=== PATIENT | female | born 1955 | race Asian ===

== ENCOUNTER 2016-07-19 08:13 | Emergency (ER) | payer BC ==
[~2016-07-19] VITALS: Ht 152.4 cm; Wt 54.5 kg
[2016-07-19 08:18] VITALS: TEMP 97.4
[2016-07-19] MEDS ORDERED: PROTONIX 40MG T40 MG PO (08:25)
[2016-07-19 09:19] LABS: HEMATOCRIT 41.9 % (37.0-47.0); HEMOGLOBIN 13.7 g/dl (12.5-16.0); MEAN CELL VOLUME 86 fl (80.0-100.0); MEAN CORPUSCULAR HEMOGLOBIN 28 pg (27.0-31.0); MEAN CORPUSCULAR HGB CONC 33 g/dl (33.0-37.0); MEAN PLATELET VOLUME 9.2 fl (7.4-10.4); PLATELET COUNT 290 K/mm3 (130-400); RED BLOOD COUNT 4.88 M/mm3 (4.10-5.30); REDCELL DISTRIBUTION WIDTH-CV 12.3 % (11.5-14.5)
[2016-07-19 09:38] LABS: ADD PATHOLOGY DIFF REVIEW NO; TOTAL CELLS COUNTED 0
[2016-07-19 09:47] LABS: ADJUSTED CALCIUM 9.3 mg/dL (8.4-10.2); ALBUMIN 4.3 gm/dL (3.5-5.0); BILIRUBIN,TOTAL 0.7 mg/dL (0.0-1.0); CALCIUM 9.5 mg/dL (8.4-10.2); CREATININE, serum 0.6 mg/dL (0.52-1.25); POTASSIUM 4.1 mmol/L (3.4-5.0); TOTAL PROTEIN 8.2 gm/dL (6.4-8.2)
[2016-07-19] MEDS ORDERED: CIPRO 500MG TA500 MG PO (10:03)
[2016-07-19] MEDS ORDERED: ZOFRAN ODT4 MG PO (10:03)
[2016-07-19 10:51] VITALS: BP 119/63; PULSE 63
== END 2016-07-19 10:52 | disposition home or self-care (01) ==
LOC: COL.ER 08:13
PROVIDERS: Emergency Medicine
DX: R11.10 Vomiting, unspecified (principal)
CPT/HCPCS: C9113; J2405; J2550; J7030

== ENCOUNTER → 2017-08-17 | Outpatient (CLI) | payer BC ==
[~2017-08-17] MED LIST: CIPRO 500MG TA500 MG PO; PROTONIX 40MG T40 MG PO; ZOFRAN ODT4 MG PO
== END ==
LOC: MC.RAD 07-27 11:00
DX: Z12.31 Encounter for screening mammogram for malignant neoplasm of breast (principal)

== ENCOUNTER → 2018-07-09 | Outpatient (CLI) | payer BC ==
[~2018-07-09] MED LIST changes: +BACTRIM DS 8001 TAB; +EVISTA 60MG60 MG/TAB; +NEXIUM 40MG40 MG; +ZANTAC 150MG T150 MG
== END ==
LOC: COL.VAS 08:11
DX: Z01.818 Encounter for other preprocedural examination (principal); H47.10 Unspecified papilledema; H35.352 Cystoid macular degeneration, left eye; I08.1 Rheumatic disorders of both mitral and tricuspid valves

== ENCOUNTER → 2018-08-09 | Outpatient (CLI) | payer BC | LOC: COL.RAD 11:46 | DX: R10.9 Unspecified abdominal pain (principal); Z90.710 Acquired absence of both cervix and uterus | CPT/HCPCS: Q9967 ==

== ENCOUNTER → 2018-10-28 | Outpatient (CLI) | payer BC | LOC: COL.RAD 07:03 | DX: N28.1 Cyst of kidney, acquired (principal) ==

== ENCOUNTER → 2019-03-28 | Outpatient (CLI) | payer BC ==
[~2019-03-28] MED LIST changes: +OSCAL 500 TAB500 MG PO; +VALIUM 5MG T5 MG/TAB PO; +ZOFRAN 4MG T4 MG/TAB PO
== END ==
LOC: COL.RAD 06:55
DX: G31.9 Degenerative disease of nervous system, unspecified (principal); Q27.39 Arteriovenous malformation, other site
CPT/HCPCS: A9585

== ENCOUNTER 2019-04-08 07:47 | Outpatient (RCR) | payer BC | END 2019-04-20 13:21 | disposition home or self-care (01) | LOC: WSPT 07:47 | DX: R42 Dizziness and giddiness (principal) ==

== ENCOUNTER → 2019-06-20 | Outpatient (CLI) | payer BC ==
--- NOTE | 2019-06-15 14:31 | NUR ---
PT TO COME IN AT 1130 AND BE SCANNED FOR THYROID, BX IF INDICATED TO FOLLOW.
[~2019-06-20] VITALS: Ht 152.4 cm; Wt 49.1 kg
[~2019-06-20] MED LIST changes: +PAMELOR 10MG10 MG PO; +PROLIA60 MG/ML SQ
[2019-06-20 12:04] VITALS: BP 161/77; PULSE 84
[2019-06-20 12:45] VITALS: BP 146/92; PULSE 84
--- NOTE | 2019-06-20 12:45 | NUR ---
PT UNDERWENT THE THYROID BX. SITE IS [facility] WITH ADELE PRESENT. VSS. REFUSED DNACK. PT WAS TAKEN TO LOBBY AND HANDED OVER TO HER
== END ==
LOC: COL.RAD 11:17
DX: E04.1 Nontoxic single thyroid nodule (principal)

== ENCOUNTER 2019-07-12 13:02 | Emergency (ER) | payer BC ==
[~2019-07-12] VITALS: Ht 152.4 cm; Wt 48.6 kg
[2019-07-12 14:16] LABS: BASO # 0.1 (0.0-0.2); BASO % 0.4 % (0.0-2.0); EOS # 0.2 (0.0-0.7); EOS % 1.3 % (0-4.0); GRAN # 13.3 (1.4-6.5); GRAN % 81.1 % (42.2-75.2); HEMOGLOBIN 10.3 g/dl (12.5-16.0); LYMPH # 1.5 (1.2-3.4); LYMPH % 9.1 % (20.0-51.0); MEAN CELL VOLUME 78 fl (80.0-100.0); MEAN CORPUSCULAR HEMOGLOBIN 24 pg (27.0-31.0); MEAN CORPUSCULAR HGB CONC 31 g/dl (33.0-37.0); MEAN PLATELET VOLUME 7.8 fl (7.4-10.4); MONO # 1.3 (0.1-0.6); MONO % 7.6 % (1.7-9.3); PLATELET COUNT 492 K/mm3 (130-400); RED BLOOD COUNT 4.23 M/mm3 (4.10-5.30); REDCELL DISTRIBUTION WIDTH-CV 17.5 % (11.5-14.5)
[2019-07-12 14:22] LABS: HEMATOCRIT 33.1 % (37.0-47.0)
[2019-07-12 14:25] LABS: ALANINE AMINOTRANSFERASE 16 U/L (9-52); ALBUMIN 4.1 gm/dL (3.5-5.0); ALKALINE PHOSPHATASE 69 U/L (50-136); ANION GAP 10 mmol/L (7-16); AST,SGOT 20 U/L (15-37); BILIRUBIN,TOTAL 0.2 mg/dL (0.0-1.0); BLOOD UREA NITROGEN 13 mg/dL (7-17); CARBON DIOXIDE 26 mmol/L (22-30); CHLORIDE 96 mmol/L (98-107); CREATININE, serum 0.46 (0.52-1.25); GLUCOSE 117 mg/dL (74-106); POTASSIUM 4.1 mmol/L (3.4-5.0); SODIUM 131 mmol/L (137-145); TOTAL PROTEIN 7.9 gm/dL (6.4-8.2)
[2019-07-12 14:40] VITALS: BP 138/77
[2019-07-12 15:02] LABS: TROPONIN-I < 0.012 ng/mL (0.000-0.035)
[2019-07-12 15:22] VITALS: PULSE 82; TEMP 98.7
== END 2019-07-12 15:22 | disposition home or self-care (01) ==
LOC: COL.ER 13:02
PROVIDERS: Emergency Medicine
DX: S06.9X9A Unspecified intracranial injury with loss of consciousness of unspecified duration, initial encounter (principal); R40.2412 Glasgow coma scale score 13-15, at arrival to emergency department; W19.XXXA Unspecified fall, initial encounter; Y92.009 Unspecified place in unspecified non-institutional (private) residence as the place of occurrence of the external cause

== ENCOUNTER → 2020-04-13 | Outpatient (CLI) | payer BC | LOC: MC.RAD 07:00 | DX: N63.20 Unspecified lump in the left breast, unspecified quadrant (principal) ==

== ENCOUNTER → 2021-07-22 | Outpatient (CLI) | payer BC | LOC: MC.RAD 08:15 | DX: Z12.31 Encounter for screening mammogram for malignant neoplasm of breast (principal) ==

== ENCOUNTER 2022-02-11 14:27 | Outpatient (CLI) | payer BC ==
[2022-02-11 14:15] VITALS: BP 141/75; PULSE 68; TEMP 98; TEMP 98.8
[~2022-02-11 14:27] MED LIST changes: +ACTEMRA AC162 MG/0.9 SQ; +NORVASC 5MG5 MG/TAB PO; +PROAIR HFA0.09 MG/AC IH; +XANAX .25M0.25 MG/TA PO
[2022-02-11 14:45] VITALS: BP 128/62; PULSE 66
[2022-02-11 15:00] VITALS: BP 137/68; PULSE 60
[2022-02-11 15:15] VITALS: BP 152/72; PULSE 60
[2022-02-11] MEDS ORDERED: VITAMIN B COMPL1 SGL PO (15:43)
[2022-02-11] MEDS ORDERED: ESTRACE0.1 MG/GM VG (15:45)
[2022-02-11] MEDS ORDERED: PROBIOTIC BLEN1 EACH PO (15:45)
== END 2022-02-11 15:50 ==
LOC: EUO 14:27
DX: U07.1 COVID-19 (principal)
CPT/HCPCS: M0222; Q0222

== ENCOUNTER → 2022-09-15 | Outpatient (CLI) | payer BC ==
[~2022-09-15] MED LIST changes: +ESTRACE0.1 MG/GM VG; +PROBIOTIC BLEN1 EACH PO; +VITAMIN B COMPL1 SGL PO
== END ==
LOC: MC.RAD 08:24
DX: Z12.31 Encounter for screening mammogram for malignant neoplasm of breast (principal)